=== PATIENT | female | born 1975 ===

== ENCOUNTER → 2018-10-28 22:35 | Outpatient (REF) | payer BC, SELFPAY ==
[2018-10-29 00:01] LABS: Add Manual Diff / Slide Review NO; Basophils Absolute Auto 0 /uL (0-100); Basophils Percent Auto 0.9 % (0-2); Eosinophils Absolute Auto 100 /uL (0-450); Eosinophils Percent Auto 1.9 % (2-4); Hemoglobin 14.1 g/dL (12.0-16.0); Lymphocytes Absolute Auto 1100 /uL (1100-4500); Lymphocytes Percent Auto 28.9 % (25-40); Mean Corpuscular HGB Conc 32.8 % (30-36); Mean Corpuscular Volume 91.5 fL (80-100); Monocytes Absolute Auto 300 /uL (0-900); Monocytes Percent Auto 6.8 % (3-14); Neutrophils Absolute Auto 2400 /uL (1500-7000); Neutrophils Percent Auto 61.5 % (50-75); Platelet Count 330 X10^3/uL (150-400); Red Cell Distribution Width 13.4 % (11.6-14.8); White Blood Cell Count 3.9 X10^3/uL (4.5-11.0)
[2018-10-29 00:39] LABS: Alanine Aminotransferase 42 IU/L (9-52); Albumin 4.8 g/dL (3.5-5.0); Albumin Globulin Ratio 1.8 (1.0-2.8); Alkaline Phosphatase 41 U/L (38-126); Aspartate Aminotransferase 33 IU/L (14-36); BUN Creatinine Ratio 11.3 (6-22); Bilirubin Total 0.5 mg/dL (0.2-1.3); Blood Urea Nitrogen 9 mg/dL (7-17); Calcium 9.9 mg/dL (8.4-10.2); Carbon Dioxide 25 mmol/L (22-32); Chloride 102 mmol/L (98-107); Cholesterol 220 mg/dL (140-199); Estimated Glomerular Filt Rate > 60.0 mL/min (>60); Globulin 2.6 g/dL (1.7-4.1); Glucose 72 mg/dL (70-100); HDL Cholesterol 73 mg/dL (40-60); HEMOLYSIS < 15 (0-50); LDL Cholesterol Calculated 119 mg/dL (<100); Potassium 4.4 mmol/L (3.4-5.1); Sodium 139 mmol/L (137-145); Total Protein 7.4 g/dL (6.3-8.2); Triglycerides 139 mg/dL (35-150)
[2018-10-29 03:01] LABS: Free T4, Direct Thyroxine 1.05 ng/dL (0.78-2.19)
[2018-10-29 03:15] LABS: Thyroid Stimulating Hormone 1.15 uIU/mL (0.47-4.68)
[2018-10-30 16:45] LABS: Thyroid Peroxidase Antibodies 3 IU/mL (< 9); Triiodothyronine T3 Total 102 ng/dL (76-181)
[2018-10-30 16:51] LABS: Thyroglobulin Antibodies < 1 IU/mL (< 2); Thyroglobulin Level 39.6 ng/mL (2.8-40.9)
== END ==
LOC: LAB 22:35
PROVIDERS: Visit Provider Family Medicine
DX: J45.40 Moderate persistent asthma, uncomplicated (principal); F41.8 Other specified anxiety disorders; R68.89 Other general symptoms and signs; E04.1 Nontoxic single thyroid nodule; L60.3 Nail dystrophy; Z00.00 Encounter for general adult medical examination without abnormal findings; Z13.220 Encounter for screening for lipoid disorders
CPT/HCPCS: 36415; 80053; 80061; 84432; 84439; 84443; 84480; 85025; 86376; 86800